=== PATIENT | female | born 1975 | race Caucasian/White ===

== ENCOUNTER 2018-05-10 06:44 | Day surgery (SDC) | payer OTHER ==
[~2018-05-10 06:44] MED LIST: ARIMIDEX PO; CLINDAMYCIN HC300 MG PO; FOLIC ACID1 MG PO; HYZAAR 50-12.51 EACH PO; IRON18 MG PO; LOSARTAN-HCTZ1 EAC1 PO; METOPROLOL SUCC50 MG PO; METROPOLOL PO
== END 2018-05-10 13:15 | disposition home or self-care (01) ==
LOC: CIR.AMB 06:44
DX: C50.212 Malignant neoplasm of upper-inner quadrant of left female breast (principal)
CPT/HCPCS: 36561; C1751